=== PATIENT | male | born 2005 | race Caucasian/White ===

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

== ENCOUNTER 2024-05-24 13:57 | Emergency (ER) | payer OTHER, SELFPAY ==
--- NOTE | 2024-05-24 14:04 | ED.URI ---
HPI - URI/Sore Throat General Chief Complaint: Upper Respiratory Infection Stated Complaint: sore throat Time Seen by Provider: 05/24/24 14:12 Source: patient, RN notes reviewed and old records reviewed Mode of arrival: ambulatory Limitations: no limitations History of Present Illness HPI Narrative: 18-year-old female presents to the [facility] with complaints of a sore throat. Symptoms started Monday. Onset (ago): day(s) (3) Related Data Allergies Allergy/AdvReac Type Severity Reaction Status Date / Time No Known Allergies Allergy Verified 05/24/24 14:03 Review of Systems Review of Systems: All systems reviewed & are unremarkable except as noted in HPI and below Constitutional: Constitutional: Reports no additional constitutional complaints Eyes: Eyes: Reports no additional eye complaints ENT: Reports as per HPI and Reports sore throat Cardiovascular: Cardiovascular: Reports no additional cardiovascular complaints, Denies chest pain and Denies dyspnea Respiratory: Respiratory: Reports no additional respiratory complaints, Denies chest congestion, Denies cough and Denies dyspnea Gastrointestinal: Gastrointestinal: Reports no additional gastrointestinal complaints, Denies abdominal pain, Denies nausea and Denies vomiting Musculoskeletal: Musculoskeletal: Reports no additional musculoskeletal complaints Integumentary/Breasts: Skin/Breast: Reports system reviewed and no additional complaints, except as docu Neurologic: Reports system reviewed and no additional complaints, except as documented Psychiatric: Psychiatric: Reports no additional psychiatric complaints Allergic/Immunologic: Allergic/Immunologic: Reports no additional allergic/immunologic complaints [facility] Past Medical History Medical History No pertinent past medical history Surgical History Surgical History No pertinent past surgical history Family History Family History Father Thyroid condition Grandparent Diabetes mellitus Hypertension Heart disease Thyroid condition Grandparent Hypertension Heart disease Social History Social History Smoking packs per day: 0 Smoking cigarettes per day: 0.0 Years smoked: 0 Smoking pack-years: 0.00 Smoking status: Never smoker Second hand tobacco smoke exposure: No Alcohol intake: never Drinks per week: 0 Substance use: never Substance use type: does not use Occupation/Education: student Agree to blood products: Yes Comments At the time of my signature, I reviewed and agree with the nursing past medical, surgical, social, and family history. There is no relevant family history pertinent to the patient complaint. Exam Const: General: cooperative, healthy appearing, comfortable, no acute distress, well developed, alert and well nourished Nutritional Appearance: well nourished Orientation/consciousness: patient oriented x3 Limitations: no limitations HENMT: Head: normal to inspection Ears: hearing grossly normal bilaterally, external ears normal, TM's normal bilaterally, EAC's normal, mastoids normal and no periauricular adenopathy Face/Nose/Sinus: Normal external nose present, normal facial exam and face symmetric Face and sinus: normal facial exam, sinuses nontender and face symmetric Mouth: Yes Normal oral and palatal mucosa present, Yes lip normal and Yes tongue normal Throat: uvula midline, abnormal tonsil bilateral erythema, exudates and hypertrophy 3+ and no uvular edema Eyes: General: appearance normal, both eyes and all related structures Alignment and Position: alignment normal Periorbital: periorbital findings normal Neck: Neck: normal visual inspection, full ROM, no lymphadenopathy and no meningeal signs Chest: Chest palpation & inspec
[2024-05-24 14:10] VITALS: BP 126/67; PULSE 88; RESP 18; TEMP 36.4; O2SAT 99
[2024-05-24 14:18] LABS: EDSTREPNEGPOS1 Positive (Negative)
== END 2024-05-24 14:20 | disposition home or self-care (01) ==
PROVIDERS: Emergency Provider Nurse Practitioner
DX: J02.0 Streptococcal pharyngitis (principal)
CPT/HCPCS: 87880; 99213; G0463

== ENCOUNTER 2024-05-27 11:20 | Emergency (ER) | payer OTHER, SELFPAY ==
[2024-05-27 11:31] VITALS: BP 114/76; PULSE 99; RESP 16; TEMP 36.6; O2SAT 100
--- NOTE | 2024-05-27 11:41 | ED.URI ---
HPI - URI/Sore Throat General Chief Complaint: Skin/Abscess/Foreign Body Stated Complaint: sore throat / stomach pain Time Seen by Provider: 05/27/24 11:41 Source: patient, RN notes reviewed and old records reviewed Mode of arrival: ambulatory Limitations: no limitations History of Present Illness HPI Narrative: 18-year-old male to Express Care for complaint of sore throat, fatigue, weakness, decreased oral intake. Patient reports that symptoms started last Monday and that he was seen here and tested positive for strep. Patient has maintained oral antibiotic treatment and states increased severity of symptoms. Patient has also been treating with [id number] medications. Last ibuprofen 400 mg taken approximately 5:00 a.m. today. Patient A & O x3, awake, alert. Respirations even nonlabored. Voice is muffled in triage. Patient able to maintain oral secretions. No acute distress. Related Data Allergies Allergy/AdvReac Type Severity Reaction Status Date / Time No Known Allergies Allergy Verified 05/27/24 11:47 Review of Systems Review of Systems: All systems reviewed & are unremarkable except as noted in HPI and below Constitutional: Constitutional: Reports as per HPI, Reports fatigue, Reports fever(s), Reports poor appetite and Reports weakness Eyes: Eyes: Reports no additional eye complaints ENT: Reports as per HPI, Reports change in voice and Reports sore throat Cardiovascular: Cardiovascular: Reports no additional cardiovascular complaints, Denies chest pain and Denies dyspnea Respiratory: Respiratory: Reports as per HPI, Reports cough and Denies dyspnea Gastrointestinal: Gastrointestinal: Reports as per HPI and Reports abdominal pain ( Generalized 11/14) Musculoskeletal: Musculoskeletal: Reports no additional musculoskeletal complaints Neurologic: Reports system reviewed and no additional complaints, except as documented Psychiatric: Psychiatric: Reports no additional psychiatric complaints [facility] Past Medical History Medical History No pertinent past medical history Surgical History Surgical History No pertinent past surgical history Family History Family History Father Thyroid condition Grandparent Diabetes mellitus Hypertension Heart disease Thyroid condition Grandparent Hypertension Heart disease Social History Social History Smoking packs per day: 0 Smoking cigarettes per day: 0.0 Years smoked: 0 Smoking pack-years: 0.00 Smoking status: Never smoker Second hand tobacco smoke exposure: No Alcohol intake: never Drinks per week: 0 Substance use: never Substance use type: does not use Occupation/Education: student Agree to blood products: Yes Comments At the time of my signature, I reviewed and agree with the nursing past medical, surgical, social, and family history. There is no relevant family history pertinent to the patient complaint. Exam Const: General: cooperative, comfortable, no acute distress, alert, awake, ill appearing acutely, tired appearing, uncomfortable and well nourished Nutritional Appearance: well nourished Orientation/consciousness: patient oriented x3 Limitations: no limitations HENMT: Head: normal to inspection Ears: external ears normal and TM abnormal with fluid behind the TM bilateral Face/Nose/Sinus: Normal external nose present, Normal nares present, normal facial exam, No erythema and No edema Face and sinus: normal facial exam, no erythema and no edema Mouth: Yes Normal oral and palatal mucosa present Throat: abnormal tonsil bilateral erythema, exudates and hypertrophy 4+ and no uvular edema Eyes: General: appearance normal, both eyes and all related structures Neck: Neck: rohini
[2024-05-27 12:07] LABS: EDMONONEGPOS Positive (Positive)
[2024-05-27] MEDS: ONDANSETRON HCL ODT 4 MG TABLET PO (12:12)
[2024-05-27] MEDS: dexAMETHasone SOD PHOS INJ 10 MG/ML 1 ML VIAL 20 MG IM (12:13)
== END 2024-05-27 13:10 | disposition short-term general hospital (02) ==
PROVIDERS: Emergency Provider Nurse Practitioner Family
DX: B27.90 Infectious mononucleosis, unspecified without complication (principal)
CPT/HCPCS: 36416; 86308; 96372; 99215; A9270; G0463; J1100

== ENCOUNTER 2024-09-12 14:59 | Emergency (ER) | payer OTHER, SELFPAY ==
--- NOTE | 2024-09-12 15:02 | ED_ITS ---
HPI - URI/Sore Throat General Chief Complaint: Upper Respiratory Infection Stated Complaint: Sore Throat Time Seen by Provider: 09/12/24 15:20 Source: patient Mode of arrival: ambulatory Limitations: no limitations History of Present Illness HPI Narrative: Aneudy is a 18-year-old male patient presenting to the clinic today with complaints of a sore throat x3 days. He reports a feels a lot like when he had strep/mono and June. He denies any fevers, chills, body aches. He denies any runny nose, cough, or congestion. MD elicited complaint: sore throat Related Data Allergies Allergy/AdvReac Type Severity Reaction Status Date / Time No Known Allergies Allergy Verified 09/12/24 15:07 Review of Systems Review of Systems: Pertinent positives per HPI. Patient denies any fever, chills, rash, headache, visual changes, dizziness, cough, shortness of breath, chest pain, palpitations, nausea, vomiting, diarrhea, constipation, abdominal pain, or any urinary issues. PMFSH Past Medical History Medical History No pertinent past medical history Surgical History Surgical History No pertinent past surgical history Family History Family History Father Thyroid condition Grandparent Diabetes mellitus Hypertension Heart disease Thyroid condition Grandparent Hypertension Heart disease Social History Social History Smoking packs per day: 0 Smoking cigarettes per day: 0.0 Years smoked: 0 Smoking pack-years: 0.00 Smoking status: Never smoker Second hand tobacco smoke exposure: No Alcohol intake: never Drinks per week: 0 Substance use: never Substance use type: does not use Occupation/Education: student Agree to blood products: Yes Comments At the time of my signature, I reviewed and agree with the nursing past medical, surgical, social, and family history. There is no relevant family history pertinent to the patient complaint. Exam Narrative: General: Well-developed, well nourished, in no apparent distress Head: Normocephalic, atraumatic Eyes: Pupils equally round and reactive to light bilaterally, EOM intact, sclera and conjunctive clear, no discharge, lids normal Ears: TMs intact and clear, ear canals clear, no drainage, grossly hearing normal. Nose: Nares patent, no discharge, no inflammation, no sinus tenderness. Mouth: Oral pharynx without lesions or masses, good dentition, MMM. Neck: Supple, trachea midline, no enlargement of anterior or posterior cervical nodes, no thyroid masses or goiter palpable. Cardio: Regular rate and rhythm, s1 and s2 normal, no murmur appreciated. Resp: Clear to auscultation bilaterally, no rhonchi, rales, wheezing or rubs Course Course Emergency Course: Portions of this record may have been created with voice recognition software. Level of Care: Express Care Visit Vital Signs Vital signs: Vital Signs Temperature 36.9 C 09/12/24 15:18 Pulse Rate 79 09/12/24 15:18 Respiratory Rate 16 09/12/24 15:18 Blood Pressure 121/51 L 09/12/24 15:18 Pulse Oximetry 99 09/12/24 15:18 Oxygen Delivery Room Air 09/12/24 15:18 Temperature 36.9 C 09/12/24 15:18 Pulse Rate 79 09/12/24 15:18 Respiratory Rate 16 09/12/24 15:18 Blood Pressure 121/51 L 09/12/24 15:18 Pulse Oximetry 99 09/12/24 15:18 Oxygen Delivery Room Air 09/12/24 15:18 Vital signs reviewed MDM - URI/Sore Throat MDM Narrative Medical decision making narrative: At the time of visit patient is resting comfortably on the exam table. Patient appears to be nontoxic. Labs: Strep test was negative in the clinic today. We will send strep for culture. Plan: I suspect patient has pharyngitis. Send strep for culture. Supportive measures were discussed with the patient and they voiced understanding discharge instructions and agrees to treatment plan. Return precautions reviewed Differential Diagnosis Differential diagnosis: Likely upper respiratory infection, otitis media, sinusitis, viral infection, bronchitis, influenza, pharyngitis and other (COVID) Lab Data Labs: Lab Results 09/12/24 Range/Units 15:15 POC Grp A Strep Screen Negative (Negative) Discharge Plan Discharge Clinical Impression: Pharyngitis Qualifiers: Pharyngitis/tonsillitis etiology: unspecified etiology Qualified Code(s): J02.9 - Acute pharyngitis, unspecified Patient Disposition: Home, Self-Care Condition: Stable Instructions: Antibiotic Form, Pharyngitis (ED) Additional Instructions: Strep throat was negative in the clinic today. We will send strep for culture Increase fluids and stay well hydrated Tylenol/motrin for pain/fever Flonase and OTC antihistamines as directed Vicks vapor rub to open sinuses Sinus rinses for congestion Cepacol spray, cough drops, throat lozenges, warm tea with honey/lemon, gargle salt water to soothe throat BRAT diet for diarrhea Clear liquids x 24 hours then advance as tolerated for nausea/vomiting Go to the ED if you develop a worsening in your condition- high fever not controlled by Tylenol or Motrin, dehydration, weakness, lethargy, shortness of breath, or chest pain. Follow up with your PCP in 3-5 days if symptoms persist. Patient Language: Citizen Of [place] Follow-up/Referrals: Smiley Singh PA-C [Primary Care Provider] - Stand Alone Forms: Work/School Release IP Time of Disposition: 15:25 Quality NIHSS Nursing Documentation ED NIHSS nursing documentation: reviewed/agree
[2024-09-12 15:18] VITALS: BP 121/51; PULSE 79; RESP 16; TEMP 36.9; O2SAT 99
[2024-09-12 15:26] LABS: EDSTREPNEGPOS1 Negative (Negative)
[2024-09-12 15:39] LABS: EDSTREPNEGPOS1 Negative (Negative)
== END 2024-09-12 15:30 | disposition home or self-care (01) ==
PROVIDERS: Emergency Provider Nurse Practitioner Family; PCP Physician Assistant Medical
DX: J02.9 Acute pharyngitis, unspecified (principal)
CPT/HCPCS: 87081; 87880; 99213; G0463

== ENCOUNTER 2025-03-24 10:54 | Emergency (ER) | payer OTHER, SELFPAY ==
[2025-03-24 11:04] VITALS: BP 141/70; PULSE 69; RESP 16; TEMP 36.2; O2SAT 100
[2025-03-24 11:27] LABS: EDSTREPNEGPOS1 Negative (Negative)
--- NOTE | 2025-03-24 11:36 | ED_ITS ---
HPI - URI/Sore Throat General Chief Complaint: Upper Respiratory Infection Stated Complaint: Sore throat Time Seen by Provider: 03/24/25 11:16 Source: patient and RN notes reviewed Mode of arrival: ambulatory Limitations: no limitations History of Present Illness HPI Narrative: Patient presents today complaining a 4 day history of sore throat that worsened since last night with 2 day history of postnasal drip and right ear pain. Denies cough, congestion, rhinorrhea. He has been taking ibuprofen, cough drops, NyQuil without much relief and currently rates his pain 8/10 today. Patient had mononucleosis last year. Related Data Allergies Allergy/AdvReac Type Severity Reaction Status Date / Time No Known Allergies Allergy Verified 03/24/25 10:57 [facility] Past Medical History Medical History No pertinent past medical history Surgical History Surgical History No pertinent past surgical history Family History Family History Father Thyroid condition Grandparent Diabetes mellitus Hypertension Heart disease Thyroid condition Grandparent Hypertension Heart disease Social History Social History Smoking packs per day: 0 Smoking cigarettes per day: 0.0 Years smoked: 0 Smoking pack-years: 0.00 Smoking status: Never smoker Second hand tobacco smoke exposure: No Alcohol intake: never Drinks per week: 0 Substance use: never Substance use type: does not use Occupation/Education: student Agree to blood products: Yes Comments At time of signature, I have reviewed and agree with nursing past medical, surgical, social and family history unless otherwise noted. Please see nursing chart for further information. There is no relevant family history pertinent to the presenting complaint Exam Narrative: GENERAL: Well-appearing, well-nourished, and in no acute distress. HEAD: Normocephalic, atraumatic. EYES: EOMI. No redness or drainage. Conjunctivae normal. ENT: Mucous membranes pink and moist. Nares clear. No rhinorrhea. TMs normal bilaterally. Throat mildly erythematous. Tonsils 3+ with mild white exudate. Uvula midline. NECK: Normal AROM. Supple. Bilateral anterior cervical chain lymphadenopathy. CHEST: No respiratory distress. Clear to auscultation. HEART: Regular rate and rhythm. No murmur appreciated. EXTREMITIES: Normal range of motion. No edema. SKIN: Warm, dry, no rash. Capillary refill normal. Normal skin turgor. NEURO: No focal deficits. Alert and oriented x3. Gait steady. PSYCH: Normal affect. No signs of depression or anxiety. Course Course Level of Care: Express Care Visit Vital Signs Vital signs: Vital Signs Temperature 97.1 F L 03/24/25 11:04 Pulse Rate 69 03/24/25 11:04 Respiratory Rate 16 03/24/25 11:04 Blood Pressure 141/70 H 03/24/25 11:04 Pulse Oximetry 100 03/24/25 11:04 Oxygen Delivery Room Air 03/24/25 11:04 Temperature 97.1 F L 03/24/25 11:04 Pulse Rate 69 03/24/25 11:04 Respiratory Rate 16 03/24/25 11:04 Blood Pressure 141/70 H 03/24/25 11:04 Pulse Oximetry 100 03/24/25 11:04 Oxygen Delivery Room Air 03/24/25 11:04 Reviewed MDM - URI/Sore Throat MDM Narrative Medical decision making narrative: 19-year-old male patient presents with a 4 day history of sore throat that is worse since last night with postnasal drip and right ear pain for the past 2 day s. [id number] medication providing no relief finger rates his pain 8/10 today. Upon exam, patient has mildly erythematous throat with 3+ tonsils with some white exudate and some lymphadenopathy in the anterior cervical chains. Handling secretions well. Bilateral breath sounds normal. Rapid strep negative. Culture pending. Patient declines COVID testing. Declines testing for mono today as well. You will be given a dose of oral dexamethasone for swelling in the tonsils. Rx for prednisone will also be provided. Symptoms likely viral in etiology. Patient agrees with plan. Vital signs stable. Anticipatory guidance given Differential Diagnosis Differential diagnosis: Likely upper respiratory infection, otitis media, viral infection, pharyngitis and other (Strep throat, COVID) Lab Data Attestation: I reviewed the patient's lab results. Labs: Lab Results 03/24/25 Range/Units 11:25 POC Grp A Strep Screen Negative (Negative) Critical Care Time Critical Care Time Critical Care Time: No Discharge Plan Discharge Clinical Impression: Viral syndrome Pharyngitis Qualifiers: Pharyngitis/tonsillitis etiology: unspecified etiology Qualified Code(s): J02.9 - Acute pharyngitis, unspecified Patient Disposition: Home Condition: Stable Instructions: Pharyngitis (ED) Additional Instructions: Your rapid strep swab was negative today at [facility]. You will be notified in a few days if the culture comes back positive for strep, and appropriate antibiotics will be called in for you at that time. Your symptoms are likely due to a viral illness, which is not treated with antibiotics. Viral symptoms can be present for up to 7-10 days. Take Tylenol or ibuprofen for fever or pain. Take the prescribed prednisone as directed, starting tomorrow. Rest and stay hydrated. Follow up with your PCP in 5 days if symptoms are not improving. Go to the ER immediately if you have any difficulty breathing or swallowing. Your blood pressure was elevated above 120/80 today at Urgent Care. This puts you above the threshold for follow up. Please schedule a followup visit with your personal physician as soon as possible, for further evaluation and treatment. Even blood pressure exceeding 120/80 may indicate pre-hypertension. Patient Language: [place]ian Prescriptions: New prednisone 50 mg tablet 50 mg PO DAILY 3 Days Qty: 3 0RF Follow-up/Referrals: Smiley Singh PA-C [Primary Care Provider] - Time of Disposition: 11:41
[2025-03-24] MEDS: dexAMETHasone SOD PHOS INJ 10 MG/ML 1 ML VIAL BY MOUTH (11:41)
--- OUTSIDE RECORDS SUMMARY | 2025-03-24 11:53 | XMS_ITS | Clinical Summary ---
Author Organization [facility] [employer] Address [address] [place] [address] Care Team Providers Care Journeyman Wireman Name Role Phone Violette Alvarez MD Primary Care Provider [phone] Violette Alvarez MD Unavailable Source Comments [facility] [employer],non-owned Affiliates and Associated Physician Practices is amultiple site organization consisting of ambulatory clinics and hospital sitesin [place], [place], [place] and [place]. This disclosure is being madepursuant to the Care Everywhere program and may not contain all information available regarding this patient. Last updated 18.[facility] [employer] Allergies No known active allergies Medications * Be aware that medications may not be up to date on this document. Alwaysverify current medications with the patient. clobetasol (Temovate) 0.05 % ointment Apply to affected area 2 times daily 60 g 1 02/06/2023 Active Active Problems Problem Noted Date Diagnosed Date Chronic bilateral low back pain without sciatica 09/27/2021 Assessment & Plan (09/27/2021 12:11 PM RESIDENCE COUNSELOR): ASSESSMENT: Chronic low back pain PLAN: 1. Questions solicited and answered. 2. Referral to PT for low back 3. Medications Prescribed: none 4. Activity Restrictions: none 5. Weightbearing status: NWB bilateral, No Restrictions 6. Follow up: 3 months; Telemed visit Family history of hypercholesterolemia 2 Resolved Problems Problem Noted Date Diagnosed Date Resolved Date Right wrist injury 06/09/2016 04/02/202 1 Injury, other and unspecifie d, elbow, forearm, and wrist 05/01/2011 11/06/2020 Immunizations Immunization Administration Dates Next Due DTAP/IPV 12/04/2009 DTaP VACCINE IM (6wk-6yrs) 04/27/2006,,03/17/2005,12/28 HEP A PEDS 2 DOSE 11/19/2007,11/06/2006 HEP B VACCINE, PED/ADOL 03/17/2005,2004, HIB BOOSTER 01/24/2006, 5,03/17/2005,12/28 Human Papilloma Virus Nineva lent Vaccine 11/06/2020,02/26/2019 INFLUENZA VACCINE 08/05/2005 MENINGOCOCCAL ACWY (MCV4P) VAC IM 11/06/2020,04/2016 MMR 11/07/2008,11/04/2005 PNEUMOCOCCAL CONJ, PEDS 11/04/2005,05/05,03/17/2005,12/28 POLIO IPV 05/05/2005,03/17/2005,2004 PPD 11/04/2005 TDAP (7yrs+) 03/15/2016 VARICELLA 11/07/2008,01/24/2006 Social History Tobacco Use Types Packs/Day Years Used Date Smoking Tobacco: Never PHQ-2 Answer Date Recorded PHQ2 TOTAL SCORE 0 02/01/2023 Sex and Gender Information Value Date Recorded Sex Assigned at Not on file Legal Sex Male 5:45 AM RESIDENCE COUNSELOR Gender Identity Not on file Sexual Orientation Not on file Last Filed Vital Signs Vital Sign Reading Time Taken Comments Blood Pressure 128/72 09/06/2022 1:21 PM RESIDENCE COUNSELOR Pulse 83 09/06/2022 1:21 PM RESIDENCE COUNSELOR Temperature 37.2 C (98.9 F) 09/06/2022 1:21 PM RESIDENCE COUNSELOR Respiratory Rate 16 03/25/2015 9:10 PM CDT Oxygen Saturation 100% 03/25/2015 6:41 PM CDT Inhaled Oxygen Concentration - - Weight 71.7 kg (158 lb) 09/06/2022 1:21 PM RESIDENCE COUNSELOR Height 172.5 cm (5' 7.9) 09/06/2022 1:21 PM RESIDENCE COUNSELOR Body Mass Index 24.09 09/06/2022 1:21 PM RESIDENCE COUNSELOR Plan of Treatment Health Maintenance Due Date Last Done Comments HIV SCREENING 11/02/2019 MENINGOCOCCAL (Group B) VACC INE SHARED DECISION-MAKING (1 of 2 - Standard) 2020 HEPATITIS C SCREENING 10/28/2022 COVID-19 VACCINE (1 - 2023-2 5 season) 2024 DEPRESSION SCREENING 08/07/2024 09/06/2022 INFLUENZA VACCINE (#1) 2025 08/05/2005 DTAP/TDAP/TD VACCINES (7 - T d or Tdap) 03/15/2026 03/15/2016, 12/04/2009, 04/27/2006, Additional history exists ZOSTER VACCINE (1 of 2) 2054 HEPATITIS B VACCINE Discontinued 03/17/2005, 2004, 2004 PNEUMOCOCCAL VACCINE Completed 11/04/2005, 05/05/2005, 03/17/2005, Additional history exists HIB VACCINE Completed 01/24/2006, 04/08, 03/17/2005, Additional history exists HPV VACCINE Completed 11/06/2020, 02/26/2019 MENINGOCOCCAL GROUPS A/C/Y/W VACCINE Completed 11/06/2020, 03/15/2016 Goals Goal Patient Goal Type Associated Problems Recent Progress Patient-Stated? Author Use safety retraint in car Lifestyle On track( 023 1:22 PM RESIDENCE COUNSELOR) Pam Rg, RN Insurance [facility] [place] [address] [place] [id number] [facility] CIG CIG * Guarantor: GASPER FERNANDEZ Account Type Relation to Patient Date of Phone Billing Address Personal/Family 2005 [address] [place] [address] Care Teams Journeyman Wireman Relationship Specialty Start Date End Date Violette Alvarez MD PCP - General Pediatrics 03/02/15 Violette Alvarez MD [address] [address] PCP - Attributed-[employer] 05/07/19
--- OUTSIDE RECORDS SUMMARY | 2025-03-24 11:53 | XMS_ITS | Clinical Summary ---
Author Organization [facility] Address [address] [place] [address] Care Team Providers Care Fluxer Name Role Phone Violette Alvarez MD Primary Care Provider [phone] Smiley Singh Unavailable [phone] Allergies No known active allergies Medications ketorolac (TORADOL) 10 mg tabletIndicatio ns:Severe Pain Take 1 tablet (10 mg total) by mouth every 6 (six) hours as needed for pain With something to eat 16 tablet Active Active Problems Problem Noted Date Diagnosed Date Transaminitis 05/28/2024 Gammaherpesviral mononucleosis with other compli cations 05/28/2024 Hyperbilirubinemia 05/28/2024 Infectious mononucleosis 05/28/2024 Strep pharyngitis 05/27/2024 Social History Tobacco Use Types Packs/Day Years Used Date Smoking Tobacco: Never Smokeless Tobacco: Never Tobacco Cessation:Counseling Given: Not Answered [facility] Utilities Answer Date Recorded In the past 12 months has [employer], Coin, oil, or water [employer] threatened to shut off services in your home? No 05/28/2024 Social Connection and Isolation Panel Answer Date Recorded In a typical week, how many times do you talk on the phone with family, friends, or neighbors? More than three times a week 05/28/2024 How often do you get togethe r with friends or relatives? More than three times a week 05/28/2024 How often do you attend [facility] or rastafarian services? Never 05/28/2024 Do you belong to any clubs o r organizations such as buddhism groups, unions, fraternal or athletic groups, or school groups? Yes 05/28/2024 How often do you attend meet ings of the clubs or organizations you belong to? 1 to 4 times per year 05/28/2024 Are you , , di vorced, , never , or living with a partner? Never 05/28/2024 AUDIT-C Answer Date Recorded Q1: How often do you have a drink containing alcohol? Never 05/27/2024 Q2: How many drinks containi ng alcohol do you have on a typical day when you are drinking? Patient does not drink Q3: How often do you have si x or more drinks on one occasion? Never 05/27/2024 Overall Financial Resource Strain (CARDIA) Answe r Date Recorded How hard is it for you to pa y for the very basics like food, housing, medical care, and heating? Not hard at all 05/28/2024 Hunger Vital Sign Answer Date Recorded Within the past 12 months, y ou worried that your food would run out before you got the money to buy more. Never true 05/28/20 24 Within the past 12 months, t he food you bought just didn't last and you didn't have money to get more. Never true 05/28/2024 PRAPARE - Transportation Answer Date Re corded In the past 12 months, has l ack of transportation kept you from medical appointments or from getting medications? No 05/08 In the past 12 months, has l ack of transportation kept you from meetings, work, or from getting things needed for daily living? No 05/28/2024 Housing Stability Vital Sign Answer Jake e Recorded In the last 12 months, was t here a time when you were not able to pay the mortgage or rent on time? No 05/28/2024 In the past 12 months, how m any times have you moved where you were living? 0 05/28/2024 At any time in the past [address] [facility], were you homeless or living in a usp (including now)? No 05/28/2024 Personal Safety Answer Date Recorded Have you ever been in or are you currently in a harmful physical or emotional relationship or is someone making you feel afraid or unsafe? Denies 05/27/2024 Sex and Gender Information Value Date Recorded Sex Assigned at Not on file Legal Sex Male 6:04 AM PATHOLOGY LABORATORY DIRECTOR Gender Identity Not on file Sexual Orientation Not on file Obstetrics History Last Filed Vital Signs Vital Sign Reading Time Taken Comments Blood Pressure 140/81 05/28/2024 3:02 PM CDT Pulse 75 05/28/2024 3:02 PM CDT Temperature 36.4 C (97.5 F) 05/28/2024 3:02 PM CDT Respiratory Rate 18 05/28/2024 3:02 PM CDT Oxygen Saturation 100% 05/28/2024 3:02 PM CDT Inhaled Oxygen Concentration - - Weight 71.8 kg (158 lb 4.6 oz) 05/27/2024 8:29 P M CDT Height 172.7 cm (5' 8) 05/27/2024 2:06 PM CDT Body Mass Index 24.07 05/27/2024 2:06 PM CDT Plan of Treatment Health Maintenance Due Date Last Done Comments Depression Screening 2004 Hepatitis C Screening 2004 Meningococcal B Vaccine (1 of 2 - Standard) 2020 Regular Well Visit/Exam 18-64 2022 Influenza Vaccine (#1) 2025 08/05/2005 DTaP/Tdap/Td Vaccine (7 - Td or Tdap) 03/15/2026 03/15/2016, 12/04/2009, 04/27/2006, Additional history exists Hepatitis B Screening Completed 03/17/2005 , 2004, 2004 Varicella Vaccines Completed 11/07/2008, 01/24/2006 HPV Vaccines Completed 11/06/2020, 02/26/2019 Meningococcal Vaccine Completed 11/06/2020, 016 Pneumococcal vaccine <65 Aged Out No longer eligible based on patient's age to complete this topic Insurance [facility] OPEN ACCESS [employer] OPEN ACCESS Care Teams Fluxer Relationship Specialty Start Date End Date Violette Alvarez MD [address] [place] [address] PCP - General Pediatrics 05/27/24 Smiley Singh PA [address] [place] [id number] Physician [facility] 05/28/24
== END 2025-03-24 11:50 | disposition home or self-care (01) ==
PROVIDERS: Emergency Provider Nurse Practitioner; PCP Physician Assistant Medical
DX: B34.9 Viral infection, unspecified (principal); J02.9 Acute pharyngitis, unspecified
CPT/HCPCS: 87081; 87880; 99213; G0463; J1100